=== PATIENT | male | born 1945 | race Caucasian/White ===

== ENCOUNTER 2016-08-01 17:07 | Emergency (ER) | payer MEDICARE, OTHER ==
[2016-08-02] MEDS ORDERED: LIDOCAINE 2% JELLY GLYDO 6 ML TOPICAL ONE (00:20)
== END 2016-08-02 01:46 | disposition home or self-care (01) ==
LOC: ER 17:07

== ENCOUNTER 2016-08-03 14:34 | Inpatient (IN) | payer MEDICARE, OTHER ==
[~2016-08-03] VITALS: Ht 180.3 cm; Wt 118.8 kg
[2016-08-03] MEDS ORDERED: MORPHINE 2 MG/ML SYR IV PRN (18:45)
[2016-08-03 19:41] VITALS: BP_SYST 166; RESP 20; TEMP 98.6; Ht 180.3 cm; Wt 118.8 kg
[2016-08-03] MEDS: LACT RINGERS 1,000 ML IV SCH (19:49)
[2016-08-03 22:37] VITALS: BP_SYST 120; RESP 16; TEMP 98.5
[2016-08-04 03:52] VITALS: BP_SYST 119; RESP 18; TEMP 98
[2016-08-04] MEDS: LACT RINGERS 1,000 ML IV SCH (05:55)
[2016-08-04 07:25] VITALS: BP_SYST 141; RESP 16; TEMP 98.1
[2016-08-04 10:55] VITALS: BP_SYST 135; RESP 16; TEMP 98.6
[2016-08-04 15:26] VITALS: BP_SYST 119; RESP 16; TEMP 98.1
[2016-08-04 19:29] VITALS: BP_SYST 134; RESP 18; TEMP 98.4
[2016-08-04 23:05] VITALS: BP_SYST 147; RESP 18; TEMP 98
[2016-08-05] VITALS (7 sets, daily range): BP systolic 103–153; RESP 16–20; TEMP 97.5–98.3
[2016-08-05] MEDS: LACT RINGERS 1,000 ML IV SCH (04:55)
[2016-08-05] MEDS ORDERED: ZOLPIDEM 5 MG TAB PO PRN (06:40)
[2016-08-05] MEDS ORDERED: TIZANIDINE 4 MG TAB PO PRN (06:40)
[2016-08-05] MEDS: D5-1/2-NS W/KCL 20MEQ/L 1,000 ML IV SCH ×2 (06:46→17:26)
[2016-08-05] MEDS: LISINOPRIL 20 MG TAB PO SCH (09:03)
[2016-08-05] MEDS ORDERED: CEFTRIAXONE 1 GM in SODIUM CHLORIDE 0.9% 50 ML IV ONE (10:45)
[2016-08-05] MEDS ORDERED: CEFTRIAXONE 2 GM in SODIUM CHLORIDE 0.9% 50 ML IV ONE (16:25)
[2016-08-05] MEDS: TAMSULOSIN 0.4 MG CAP PO SCH (21:00)
[2016-08-06] VITALS (14 sets, daily range): BP systolic 115–146; RESP 16–22; TEMP 97.2–98.9
[2016-08-06] MEDS ORDERED: LEVOFLOXACIN 500 MG/100 ML 100 ML IV ONE (06:00)
[2016-08-06] MEDS ORDERED: LIDOCAINE 1% BUFFERED 1 ML SYR INTRADERM PRN (08:50)
[2016-08-06] MEDS ORDERED: GLYCOPYRROLATE 0.2 MG/ML VIAL IV ONE ×2 (08:50→14:01)
[2016-08-06] MEDS ORDERED: LACT RINGERS 1,000 ML IV SCH (08:50)
[2016-08-06] MEDS ORDERED: MIDAZOLAM 2 MG/2 ML INJ IV ONE (08:50)
[2016-08-06] MEDS ORDERED: CEFTRIAXONE 2 GM in SODIUM CHLORIDE 0.9% 50 ML IV SCH (09:00)
[2016-08-06] MEDS ORDERED: CEFTRIAXONE 1 GM in SODIUM CHLORIDE 0.9% 50 ML IV SCH (09:00)
[2016-08-06] MEDS ORDERED: D5-1/2-NS W/KCL 20MEQ/L 1,000 ML IV SCH ×2 (12:45→16:05)
[2016-08-06] MEDS ORDERED: MORPHINE 2 MG/ML SYR IV PRN ×2 (12:45→13:30)
[2016-08-06] MEDS ORDERED: MORPHINE 4 MG/ML SYR IV PRN (13:30)
[2016-08-06] MEDS ORDERED: OXYCODONE 5 MG TAB PO PRN (13:30)
[2016-08-06] MEDS ORDERED: DILAUDID 1 MG/ML AMP IV PRN (13:30)
[2016-08-06] MEDS ORDERED: ONDANSETRON 4 MG VIAL IV PRN (13:30)
[2016-08-06] MEDS ORDERED: MEPERIDINE 25 MG/ML IV PRN (13:30)
[2016-08-06] MEDS ORDERED: METHYLENE BLUE 1% 10 ML AMP IV ONE (13:40)
[2016-08-06] MEDS ORDERED: SUCCINYLCHOLINE 20 MG/ML VL IV ONE (14:01)
[2016-08-06] MEDS ORDERED: NEOSTIGMINE 10 MG/10 ML VIAL IV ONE (14:01)
[2016-08-06] MEDS ORDERED: ROCURONIUM 50 MG VIAL IV ONE (14:01)
[2016-08-06] MEDS ORDERED: PROPOFOL 20 ML PER ML IV ONE (14:01)
[2016-08-06] MEDS ORDERED: LIDOCAINE 2% SYR 5 ML IV ONE (14:01)
[2016-08-06] MEDS ORDERED: FENTANYL 100 MCG/2 ML AMP IV ONE (14:01)
[2016-08-06] MEDS ORDERED: ONDANSETRON 4 MG VIAL IV PUSH ONE (14:01)
[2016-08-06] MEDS: LISINOPRIL 20 MG TAB PO SCH (16:06)
[2016-08-06] MEDS: TAMSULOSIN 0.4 MG CAP PO SCH (21:26)
[2016-08-07 03:09] VITALS: BP_SYST 119; RESP 18; TEMP 98.3
[2016-08-07 08:14] VITALS: BP_SYST 140; RESP 18; TEMP 98.4
[2016-08-07] MEDS: LISINOPRIL 20 MG TAB PO SCH (08:56)
[2016-08-07 09:50] VITALS: BP_SYST 140; RESP 18; TEMP 98.4
== END 2016-08-07 15:34 | disposition home or self-care (01) | DRG 670 ==
LOC: ENRESERVDT → ENRESERVTM → ER 14:34 → EMR 18:16 → 5THE 19:35
PROVIDERS: ADMIT Urology; ATTEND Urology
PROC: 0TBB8ZZ Excision of Bladder, Via Natural or Artificial Opening Endoscopic (ICD-10-PCS; principal; 2016-08-06 10:23)
CPT/HCPCS: 36415; 51702; 71020; 80048; 85025; 85610; 87077; 87088; 88307; 93005; 94799